=== PATIENT | male | born 1950 | race Hispanic/Latino ===

== ENCOUNTER 2016-08-27 12:52 | Outpatient (CLI) | payer MEDICARE ==
--- NOTE | 2016-08-27 13:47 | Mammography Report ---
BONE DENSITY STUDY: DEFINITIONS: BMD = Bone Mineral Density T-score = BMD related to mean peak bone mass of young adult (mean expressed in Standard Deviation) Z-score = Age matched BMD expressed in SD World Health Organization (WHO) Diagnostic Criteria Normal T-score > -1 SD Osteopenia T-score between -1 and -2.4 SD Osteoporosis T-score -2.5 SD or below FINDINGS: The weighted average BMD of lumbar spine L1-L4 is 0.912 with a T-score of -1.6. The weighted average BMD of hip is 0.629 with a T-score of -2.7. IMPRESSION: The patient's T-score is diagnostic for osteoporosis and high relative risk for fracture. NOTE: BMD is not the only risk factor for fracture; also consider factors such as the patient's age, risk of falling, previous osteoporotic fracture, family history of osteoporotic fractures, current smoker, and low body weight. Franklin's triangle is a region of interest in femur, predominantly of trabecular bone. It is not a true anatomic site, and [facility] does not recommend its use clinically.
== END 2016-08-27 12:53 | disposition home or self-care (01) ==
LOC: MAMMO 12:52
PROVIDERS: ATTEND Family Medicine
DX: Z13.820 Encounter for screening for osteoporosis (principal); M81.0 Age-related osteoporosis without current pathological fracture; M40.209 Unspecified kyphosis, site unspecified
CPT/HCPCS: 77080